=== PATIENT | male | born 1980 | race Caucasian/White ===

== ENCOUNTER 2016-11-21 10:09 | Emergency (ER) | payer OTHER ==
[~2016-11-21] VITALS: Ht 170.2 cm; Wt 78.0 kg
[~2016-11-21 10:09] MED LIST: ALPR-411 PO; CAFF200T13 PO; HYDR-4079 PO; LSN20 PO; PROP10TA7 PO
[2016-11-21 10:17] VITALS: TEMP 37.1; Ht 170.2 cm; Wt 78.0 kg
[2016-11-21] MEDS ORDERED: KETOROLAC TROMETHAMINE 60 MG/2 ML VIAL IM STA (11:04)
[2016-11-21] MEDS ORDERED: DEXAMETHASONE SOD INJ 10 MG/ML VIAL IM ONE (11:15)
--- NOTE | 2016-11-21 11:47 | DIAGNOSTIC IMAGING REPORT ---
L-SPINE MIN 4 VIEWS ROUTINE CLINICAL HISTORY: Chronic low back pain, right thigh pain. COMPARISON: None FINDINGS: There is mild leftward curvature of the lumbar spine. No acute fracture is identified. There is mild disc space narrowing with osteophytosis at multiple levels within the lumbar spine. Endplate irregularity at these levels is degenerative. Sacroiliac joints are intact. IMPRESSION: 1. No acute lumbar spine fracture or subluxation. 2. Mild multilevel disc space narrowing with moderate endplate osteophytosis within the lumbar spine. Electronically signed by: Tim Chahal M.D. 11/21/2016 11:45 AM Dictated Date/Time: 11/21/2016 11:44 AM
--- NOTE | 2016-11-21 11:47 | DIAGNOSTIC IMAGING REPORT ---
RIGHT HIP UNILATERAL 2 VIEWS CLINICAL HISTORY: Right hip pain. COMPARISON: None FINDINGS: Alignment of the right hip is anatomic. There is no fracture or suspicious lesion. There is no evidence for avascular necrosis. Right hip joint space is preserved. There is minimal osteophytosis of the right hip. IMPRESSION: 1. No acute fracture or dislocation of the right hip. 2. Preserved right hip joint space with minimal osteophytosis. Electronically signed by: Tim Chahal M.D. 11/21/2016 11:46 AM Dictated Date/Time: 11/21/2016 11:46 AM
--- NOTE | 2016-11-21 12:04 | DIAGNOSTIC IMAGING REPORT ---
RIGHT LOWER EXTREMITY VENOUS DOPPLER CLINICAL HISTORY: Right thigh pain and burning. COMPARISON STUDY: No previous studies for comparison. TECHNIQUE: Sonography of the deep venous system of the right lower extremity was performed. Compression and augmentation were evaluated. FINDINGS: The right common femoral, superficial femoral and popliteal veins were compressible. Augmentation was normal. Flow was shown within the deep calf vessels. IMPRESSION: No evidence of deep venous thrombus within the right lower extremity. Electronically signed by: Tim Chahal M.D. 11/21/2016 12:03 PM Dictated Date/Time: 11/21/2016 12:03 PM
[2016-11-21] MEDS ORDERED: CYCL10TA6 PO (12:44)
[2016-11-21] MEDS ORDERED: HYDR-5688 PO (12:44)
[2016-11-21] MEDS ORDERED: PRED20TA PO (12:44)
[2016-11-21 12:46] VITALS: BP 100/59; PULSE 74; O2SAT 100
--- NOTE | 2016-11-21 12:46 | EMERGENCY ROOM VISIT NOTE ---
ED Visit Note First contact with patient: 10:33 CHIEF COMPLAINT: Right leg pain and low back pain 2 weeks HISTORY OF PRESENT ILLNESS: Patient is a 36-year-old white male with past medical history significant for chronic low back pain secondary to lumbar degenerative disc disease who presents emergency department for evaluation of throbbing pain in the right thigh 2 weeks. He has a history of chronic low back pain and states that this is stable. He previously had been under the care of pain management in [place]. He reports that they just wrote him prescriptions for medication. He was last on Uvalde 10 mg tablets. He cannot recall when his last MRI was. He states that there was no talk of any type of injections or physical therapy referral. He stopped going to pain management and May did he states that over the last 2 weeks he noticed a throbbing pain in the lateral aspect of the right thigh. It radiates from the lateral hip down toward his knee. In the last 2-3 days however the pain has worsened. He describes it as a "burning" pain. He states that is now wrapping toward the medial aspect of his thigh. He has difficulty getting comfortable due to his pain. He rates his discomfort a 10/10. There has been no injury to the leg or back. No unusual activity which may cause an injury recently. There has not been a long period of immobilization or long car or plane ride recently. There is no history of blood clots in the veins of the legs. He denies any fever or chills. No urinary symptoms. No bowel or bladder incontinence. No saddle anesthesias. He states that he took hydrocodone and oxycodone that he got from friends that he gave him minimal relief for his pain. REVIEW OF SYSTEMS: Review of systems as per HPI. All other systems reviewed were negative. 10 systems reviewed. PMH: Electronic medical records are reviewed and summarized as above/below. See Problem List. SOCIAL HISTORY: Patient lives at home. He is employed. Uses chewing tobacco. PHYSICAL EXAM: Vital Signs: Reviewed Nurse's notes. CONSTITUTIONAL: Patient is a well-appearing 36-year-old white male who is awake and alert and in mild distress due to his pain. HEART: Regular rate and rhythm without murmurs, ectopy, gallops, or rubs. LUNGS: Clear to auscultation and breath sounds equal, no wheezes, rales, or rhonchi. ABDOMEN: Soft, non-tender, no hepatosplenomegaly, or masses. NEUROLOGICAL: Alert oriented, coherent. PERRL, EOMs full, antalgic gait. SPINE: Examination of the patient's back showed no ecchymosis, abrasions, erythema, increased warmth, induration or swelling. He has diffuse tenderness to palpation over the lumbar spine and in the lumbar paraspinous musculature. He has discomfort with flexion, rotation and lateral bending. EXTREMITIES: No cyanosis, edema, joint tenderness or effusion. Pulses equal bilaterally. There is no redness, swelling, ecchymosis or rashes noted in the right thigh region. There soft and nontender bilaterally. No cords can be palpated and Anthony's sign is negative. Negative straight leg raise testing bilaterally. Hip range of motion is full. Negative logroll. Lower extremity DTRs are equal and symmetrical bilaterally. Normal strength to great toe and ankle dorsiflexion/plantarflexion, knee flexion and extension and hip flexion. There is no lymphangitic streaking. EMERGENCY DEPARTMENT COURSE: Patient was medicated with Toradol 10 mg IM and Decadron 10 mg IM lumbar spine and right hip x-rays were obtained. Degenerative changes were noted in the lumbar spine x-ray, otherwise remainder of the radiographs were normal. Right lower extremity ultrasound was negative for DVT. Patient pain appears to be radicular in nature, possibly related to his known lumbar degenerative disc disease. I do not suspect acute compression syndrome, cauda equina, diskitis, epidural abscess, hematoma or neurovascular compromise. He will be placed on a short course of oral prednisone. He was given a small prescription for hydrocodone. Patient was reviewed in the [facility] Prescription Drug Monitoring Program, and there were no red flags noted. He was receiving regular narcotic prescriptions , but has not received any recently, which does seem consistent with him stating that he is no longer attending pain management. RIGHT HIP UNILATERAL 2 VIEWS CLINICAL HISTORY: Right hip pain. COMPARISON: None FINDINGS: Alignment of the right hip is anatomic. There is no fracture or suspicious lesion. There is no evidence for avascular necrosis. Right hip joint space is preserved. There is minimal osteophytosis of the right hip. IMPRESSION: 1. No acute fracture or dislocation of the right hip. 2. Preserved right hip joint space with minimal osteophytosis. [~ rep ct add3]] L-SPINE MIN 4 VIEWS ROUTINE CLINICAL HISTORY: Chronic low back pain, right thigh pain. COMPARISON: None FINDINGS: There is mild leftward curvature of the lumbar spine. No acute fracture is identified. There is mild disc space narrowing with osteophytosis at multiple levels within the lumbar spine. Endplate irregularity at these levels is degenerative. Sacroiliac joints are intact. IMPRESSION: 1. No acute lumbar spine fracture or subluxation. 2. Mild multilevel disc space narrowing with moderate endplate osteophytosis within the lumbar spine. RIGHT LOWER EXTREMITY VENOUS DOPPLER CLINICAL HISTORY: Right thigh pain and burning. COMPARISON STUDY: No previous studies for comparison. TECHNIQUE: Sonography of the deep venous system of the right lower extremity was performed. Compression and augmentation were evaluated. FINDINGS: The right common femoral, superficial femoral and popliteal veins were compressible. Augmentation was normal. Flow was shown within the deep calf vessels. IMPRESSION: No evidence of deep venous thrombus within the right lower extremity. Problem List Medical Problems: (1) Anxiety Disorder, Unspecified Status: Chronic (2) Hypertension Status: Chronic (3) Left sided chest pain Status: Resolved (4) Left sided chest pain Status: Resolved (5) Lumbago Status: Chronic (6) Lumbar degenerative disc disease Status: Chronic (7) Migraine Status: Chronic (8) Non-cardiac chest pain Status: Resolved Surgical Problems: (1) Kidney stone Status: Resolved Current/Historical Medications Scheduled Alprazolam (Xanax), 0.5 MG PO QID Lisinopril (Lisinopril), 20 MG PO DAILY Prednisone (Prednisone), 0 PO DAILY Scheduled PRN Cyclobenzaprine Hcl (Flexeril), 10 MG PO TID PRN for Muscle Spasms Hydrocodone/Acetaminophen 5MG/325MG (Uvalde 5MG/325MG), 1-2 TABLETS PO Q4 PRN for Pain Allergies Coded Allergies: POLLEN (Verified Allergy, Intermediate, SNEEZING, RUNNY NOSE, ITCHY EYES. , 11/21/16) Vital Signs Date Time Temp Pulse Resp B/P Pulse Ox O2 Delivery O2 Flow Rate FiO2 11/21/16 12:46 74 16 100/59 100 Room Air 11/21/16 10:17 37.1 85 16 125/76 100 Room Air Medications Administered Medications (Trade) Dose Ordered Sig/Margaret Route Start Time Stop Time Status Last Admin Dose Admin Ketorolac Tromethamine (Toradol Inj) 60 mg NOW STAT IM 11/21/16 11:04 11/21/16 11:07 DC 11/21/16 11:14 60 MG Dexamethasone Sodium Phosphate (Decadron Inj) 10 mg NOW ONCE IM 11/21/16 11:15 11/21/16 11:16 DC 11/21/16 11:13 10 MG Departure Information Impression Primary Impression: Leg pain, right Prescriptions Hydrocodone/Acetaminophen 5MG/325MG (Uvalde 5MG/325MG) Tab 1-2 TABLETS PO Q4 Y for Pain, #15 TAB For Initial Treatment Prov: Rin Dejesus PA 11/21/16 Cyclobenzaprine Hcl (FLEXERIL) 10 Mg Tab 10 MG PO TID Y for Muscle Spasms, #15 TAB Prov: Rin Dejesus PA 11/21/16 Prednisone (Prednisone) 20 Mg Tab 0 PO DAILY, #18 TAB 3 DAILY FOR 3 DAYS, THEN 2 DAILY FOR 3 DAYS, THEN 1 DAILY FOR 3 DAYS. Prov: Rin Dejesus PA 11/21/16 Referrals No Doctor, Assigned (PCP) Patient Instructions My [facility] Additional Instructions Hydrocodone/Acetaminophen (Uvalde) 5/325 mg: Take 1-2 pills every four hours for breakthrough pain. Avoid alcohol, operating machinery or dangerous equipment, working on ladders or roofs, DRIVING, or situations where being under the influence may be dangerous. It is recommended to use an xbqo-pka-oqumrsa stool softener such as Colace, 100mg twice daily while taking this medication to avoid constipation. Prednisone 20mg: Once daily until the prescription is finished. It is best to take this earlier in the day as some patients note occasional difficulty falling asleep when taken in the late evening. Cyclobenzaprine (Flexeril) 10 mg: Take 1 pills 3 times daily as needed for muscle spasms.. Avoid alcohol, operating machinery or dangerous equipment, working on ladders or roofs, DRIVING, or situations where being under the influence may be dangerous. Ibuprofen(Motrin, Advil) may be used for fever or pain. Use 600mg every six hours as needed. Take with food. Avoid using more than 2400mg in a 24 hour period. Do not use 2400mg per day for more than three consecutive days without physician direction. Prolonged inappropriate use can lead to stomach upset or ulcers. This medication can be taken if you need to drive, work, or perform activities which may be dangerous when taking narcotic pain medication. (AND/OR) Acetaminophen(Tylenol) may be used for fever or pain. Use 1000mg every six hours as needed. Avoid using more than 3000mg in a 24 hour period. This medication can be taken if you need to drive, work, or perform activities which may be dangerous when taking narcotic pain medication. Rest and avoid heavy lifting until your symptoms resolve and then gradually return to full activity. A good rule of thumb is if it hurts your back to perform a certain activity, then it should be avoided until you are healthy again. A heating pad, warm compresses, or a hot shower may help with tight muscles and can be done several times a day as needed. Continue current medications. Return to the ER immediately for any numbness, tingling, severe pain, loss of control of your bowels or bladder, inability to walk, or as needed. Follow up with your primary care physician within 3-5 days for a recheck of your current condition.
== END 2016-11-21 13:07 | disposition home or self-care (01) ==
LOC: C.EDB 10:10
DX: M79.651 Pain in right thigh (principal); M51.36 Other intervertebral disc degeneration, lumbar region; F17.220 Nicotine dependence, chewing tobacco, uncomplicated; F41.9 Anxiety disorder, unspecified; I10 Essential (primary) hypertension; Z87.442 Personal history of urinary calculi; Z79.899 Other long term (current) drug therapy

== ENCOUNTER 2017-04-11 02:02 | Emergency (ER) | payer OTHER ==
[~2017-04-11] VITALS: Ht 177.8 cm; Wt 82.4 kg
[~2017-04-11 02:02] MED LIST changes: -CAFF200T13 PO; -HYDR-4079 PO; +HYDR-5688 PO; +PRED20TA PO; -PROP10TA7 PO
[2017-04-11 02:05] VITALS: TEMP 37.1; Ht 177.8 cm; Wt 82.4 kg
[2017-04-11] MEDS ORDERED: SODIUM CHLORIDE 0.9% 1000ML 1,000 ML IV STA (02:08)
[2017-04-11] MEDS ORDERED: KETOROLAC TROMETHAMINE 30 MG/ML VIAL IV STA (02:08)
[2017-04-11] MEDS ORDERED: OPTIRAY 320 IV PRN (02:15)
[2017-04-11 02:34] LABS: BASO % 0.2 %; BASO ABS # 0.02 K/uL (0-0.2); COMPLETE YES; EOS % 1.4 %; HEMATOCRIT 37.9 % (42-52); IG% 0.2 %; LYMPH % 31.2 %; LYMPH ABS # 3.11 K/uL (1.2-3.4); MEAN CORPUSCULAR HEMOGLOBIN 29.1 pg (25-34); MEAN CORPUSCULAR HGB CONC 34.3 g/dl (32-36); MEAN PLATELET VOLUME 9.5 fL (7.4-10.4); PLATELET COUNT 259 K/uL (130-400); RED BLOOD COUNT 4.46 M/uL (4.7-6.1); WHITE BLOOD COUNT 9.98 K/uL (4.8-10.8)
[2017-04-11] MEDS ORDERED: METO25TA3 PO (02:35)
[2017-04-11 02:55] LABS: BUN/CREATININE RATIO 11.4 (10-20); CALCIUM 8.9 mg/dl (8.5-10.1); POTASSIUM 3.8 mmol/L (3.5-5.1)
[2017-04-11] MEDS ORDERED: OXYCODONE IR HOME PACK PO ONE (05:00)
[2017-04-11] MEDS ORDERED: AMOXICIL/CLAVU 875MG HOME PACK PO ONE (05:00)
--- NOTE | 2017-04-11 05:00 | EMERGENCY ROOM VISIT NOTE ---
History First contact with patient: 02:07 Chief Complaint: OTHER COMPLAINT Stated Complaint: JAW PAIN History of Present Illness The patient is a 37 year old male who presents to the Emergency Room with complaints of severe left lower jaw pain for the past 3 days that is steadily getting worse. Pain currently 8 out of 10 worse with chewing better with rest. It does not radiate. Patient denies neck pain, neck stiffness, chest pain, dyspnea, cough, congestion, fever, chills, sore throat, dysphagia. Patient has not seen a dentist in a while. Review of Systems See HPI for pertinent positives & negatives. A total of 10 systems reviewed and were otherwise negative. Past Medical/Surgical History Medical Problems: (1) Anxiety Disorder, Unspecified (2) Hypertension (3) Left sided chest pain (4) Left sided chest pain (5) Lumbago (6) Lumbar degenerative disc disease (7) Migraine (8) Non-cardiac chest pain Surgical Problems: (1) Kidney stone Family History FH: cancer FH: gallbladder disease FH: heart disease FH: hypertension FH: lung disease FHx: diabetes mellitus Kidney stones Social History Smoking Status: Never Smoker Alcohol Use: none Drug Use: cocaine, marijuana Housing Status: lives alone Current/Historical Medications Scheduled Metoprolol Succ (Toprol Xl) (Toprol-Xl), 25 MG PO DAILY Physical Exam Vital Signs Date Time Temp Pulse Resp B/P (MAP) Pulse Ox O2 Delivery O2 Flow Rate FiO2 04/11/17 04:12 89 18 162/108 100 Room Air 04/11/17 02:05 37.1 91 18 154/106 100 Room Air Physical Exam VITALS: Vitals are noted on the nurse's note and reviewed by myself. Vital signs stable. GENERAL: White male, in no acute distress, nondiaphoretic, well-developed well- nourished. SKIN: The skin was without rashes, erythema, edema, or bruising. There is no tenting of the skin. Capillary reflex less than 2 seconds. HEAD: Normocephalic atraumatic. EARS: External auditory canals clear, tympanic membranes pearly lange without erythema or effusion bilaterally. EYES: Pupils equal round and reactive to light and accommodation. Conjunctivae without injection, sclerae without icterus. Extraocular movements intact. NOSE: Patent, turbinates without inflammation or discharge. No sinus tenderness. MOUTH: Mucous membranes moist. no Dionicio's angina Pharynx without erythema or exudate. Uvula midline. Airway patent. Tongue does not deviate. NECK: Supple without nuchal rigidity. No lymphadenopathy. No thyromegaly. Cervical spine is nontender. No JVD. Face: Tender to palpation over left lower jawline Dental exam: Extensive plaque buildup with no palpable abscess. HEART: Regular rate and rhythm without murmurs gallops or rubs. LUNGS: Clear to auscultation bilaterally without wheezes, rales or rhonchi. No dullness to percussion. No retractions or accessory muscle use. ABDOMEN: Positive bowel sounds x 4. Normal tympanic percussion. Soft, nontender, without masses or organomegaly. Deleon sign negative. No guarding or rebound tenderness. MUSCULOSKELETAL: No muscle atrophy, erythema, or edema noted. NEURO: Patient was alert and oriented to person place and time. Normal sensation to light and sharp touch. No focal neurological deficits. Medical Decision & Procedures Laboratory Results 04/11/17 02:20 Red Blood Count 4.46, Mean Corpuscular Volume 85.0, Mean Corpuscular Hemoglobin 29.1, Mean Corpuscular Hemoglobin Concent 34.3, Mean Platelet Volume 9.5, Neutrophils (%) (Auto) 59.0, Lymphocytes (%) (Auto) 31.2, Monocytes (%) (Auto) 8.0, Eosinophils (%) (Auto) 1.4, Basophils (%) (Auto) 0.2, Neutrophils # (Auto) 5.89, Lymphocytes # (Auto) 3.11, Monocytes # (Auto) 0.80, Eosinophils # (Auto) 0.14, Basophils # (Auto) 0.02 04/11/17 02:20 Test 04/11/17 02:20 White Blood Count 9.98 K/uL (4.8-10.8) Red Blood Count 4.46 M/uL (4.7-6.1) Hemoglobin 13.0 g/dL (14.0-18.0) Hematocrit 37.9 % (42-52) Mean Corpuscular Volume 85.0 fL (80-100) Mean Corpuscular Hemoglobin 29.1 pg (25-34) Mean Corpuscular Hemoglobin Concent 34.3 g/dl (32-36) Platelet Count 259 K/uL (130-400) Mean Platelet Volume 9.5 fL (7.4-10.4) Neutrophils (%) (Auto) 59.0 % Lymphocytes (%) (Auto) 31.2 % Monocytes (%) (Auto) 8.0 % Eosinophils (%) (Auto) 1.4 % Basophils (%) (Auto) 0.2 % Neutrophils # (Auto) 5.89 K/uL (1.4-6.5) Lymphocytes # (Auto) 3.11 K/uL (1.2-3.4) Monocytes # (Auto) 0.80 K/uL (0.11-0.59) Eosinophils # (Auto) 0.14 K/uL (0-0.5) Basophils # (Auto) 0.02 K/uL (0-0.2) RDW Standard Deviation 38.8 fL (36.4-46.3) RDW Coefficient of Variation 12.5 % (11.5-14.5) Immature Granulocyte % (Auto) 0.2 % Immature Granulocyte # (Auto) 0.02 K/uL (0.00-0.02) Anion Gap 7.0 mmol/L (3-11) Est Creatinine Clear Calc Drug Dose 102.4 ml/min Estimated GFR () 109.4 Estimated GFR (Non- 94.4 BUN/Creatinine Ratio 11.4 (10-20) Calcium Level 8.9 mg/dl (8.5-10.1) Amylase Level 44 U/L (25-115) Medications Administered Medications (Trade) Dose Ordered Sig/Margaret Route Start Time Stop Time Status Last Admin Dose Admin Ketorolac Tromethamine (Toradol Inj) 30 mg NOW STAT IV 04/11/17 02:08 04/11/17 02:10 DC 04/11/17 02:23 30 MG Sodium Chloride 1,000 ml @ 999 mls/hr Q1H1M STAT IV 04/11/17 02:08 04/11/17 03:08 DC 04/11/17 02:23 999 MLS/HR ED Course Prior records reviewed and summarized as above. Triage Nursing notes reviewed. Additional history obtained from EMS The patient's history was concerning for facial pain Differential diagnosis: Etiologies such as cellulitis, abscess, tic douloureux, salivary stone, parotitis, dental infection, as well as others were entertained.. Physical examination: As above ER treatment provided: Toradol On reassessment the patient felt better. Diagnostics interpreted by me: The labs revealed no worrisome leukocytosis or electrolyte abnormality. Normal amylase Imaging studies: CT NECK: No fluid collections. No abnormal mass lesions. The airway is patent. No adenopathy. Degenerative changes of cervical spine including posterior disc/ossify complexes at C5-C6 and C6- C7. Minimal mucosal thickening left frontal sinus recess. Radiologist: Kulwinder Reeves MD This appears to be facial pain most like a from dental problem. Patient does have extensive plaque buildup and this could be a problem with his rooots and patient may require a root canal. He was strongly encouraged to see a dentist. Patient is neurovascularly and neurologically intact. No signs of meningitis or mastoiditis or Dionicio angina. He was well-appearing. Patient was started on antibiotics for possible dental infection. He was advised to return to the ER immediately for fevers, facial swelling, dysphagia, worsening signs or symptoms or as needed. By the evaluation outlined above emergent etiologies such as abscess, Dionicio angina as well as others were deemed relatively unlikely. The pt informed about the findings as listed above. All questions were answered and pleased with the treatment. Return instructions were outlined and the patient was discharged in stable condition. Outpatient prescription management: Augmentin Referral: The patient was referred back to dentist and primary care physician for follow- up in 2 to 3 days for a recheck of the current condition. Case reviewed with my attending. Medical Decision As above [place] Drug Monitoring Program Search Results: patient reviewed within database, no issues identified Medication Reconcilliation Current Medication List: was personally reviewed by me Blood Pressure Screening Patient's blood pressure: Elevated blood pressure Blood pressure disposition: Referred to PCP Impression Primary Impression: Dental caries Additional Impressions: Pain, dental Facial pain Departure Information Dispostion Home / Self-Care Condition GOOD Referrals No Doctor, Assigned (PCP) Patient Instructions My [facility] Additional Instructions Your blood pressure was high today. See family care for this. Augmentin 875 mg: Take one pill 2 times daily for 10 days for your infection. All antibiotics can cause diarrhea. If this occurs and you feel worse or it does not resolve in 1-2 days follow up with your doctor or return to the Emergency Department as this could be signs of serious underlying problems. Any medication can cause an allergic reaction, stop the pills immediately and return to the ER for rash, hives, breathing difficulties, or swelling. Oxycodone (OxyIR) 5mg: Take 1-2 pills every four hours for breakthrough pain. Avoid alcohol, operating machinery or dangerous equipment, working on ladders or roofs, DRIVING, or situations where being under the influence may be dangerous. It is recommended to use an gwbr-zdg-jylnnoq stool softener such as Colace, 100mg twice daily while taking this medication to avoid constipation. Ibuprofen(Motrin, Advil) may be used for fever or pain. Use 600mg every six hours as needed. Take with food. Avoid using more than 2400mg in a 24 hour period. Do not use 2400mg per day for more than three consecutive days without physician direction. Prolonged inappropriate use can lead to stomach upset or ulcers. This medication can be taken if you need to drive, work, or perform activities which may be dangerous when taking narcotic pain medication. (AND/OR) Acetaminophen(Tylenol) may be used for fever or pain. Use 1000mg every six hours as needed. Avoid using more than 3000mg in a 24 hour period. This medication can be taken if you need to drive, work, or perform activities which may be dangerous when taking narcotic pain medication. [place] teeth twice a day, floss daily and do warm saltwater gargles 3 times a day. See a dentist as soon as possible for definitive care for your dental problem. Return to ER sooner for facial swelling, fever, redness, worsening signs or symptoms or as needed. Problem Qualifiers
[2017-04-11] MEDS ORDERED: AMOX875T PO (05:02)
[2017-04-11 05:18] VITALS: BP 161/108; PULSE 85; O2SAT 100
--- NOTE | 2017-04-11 07:27 | DIAGNOSTIC IMAGING REPORT ---
CT SCAN OF THE NECK WITH IV CONTRAST CLINICAL HISTORY: Left-sided facial pain. COMPARISON STUDY: No priors. TECHNIQUE: Following the IV administration of 115 cc of Optiray 320, CT scan of the soft tissues of the neck was performed from the skull base to the upper chest. Images are reviewed in the axial, sagittal, and coronal planes. IV contrast was administered without complication. A dose lowering technique was utilized adhering to the principles of ALARA. CT DOSE: 540.39 mGy.cm FINDINGS: Pharynx: The nasopharynx, oropharynx, and laryngeal pharynx are normal in appearance. The pharyngeal airway is widely patent. There is no evidence of mass lesion. The vocal cords are symmetric. The parapharyngeal fat is well maintained. The prevertebral/retropharyngeal soft tissues are within normal limits. Soft tissues: No mass or fluid collection is seen. No significant periodontal disease is identified. Lymphadenopathy: No cervical lymphadenopathy is seen Thyroid: Normal in size and attenuation. Salivary glands: The parotid and submandibular glands are within normal limits. Brain parenchyma: The visualized brain parenchyma at the skull base is normal in appearance. Vascular structures: The carotid arteries and jugular veins are widely patent. Skeletal structures: Imaged portions of the calvarium at the skull base are within normal limits. The cervical spine appears intact. Orbits: The bony orbits are intact. Orbital contents are normal in appearance. Sinuses and mastoids: There is trace mucosal thickening within the left frontal sinus. The paranasal sinuses are otherwise clear. The mastoid air cells are well pneumatized. Lung apices: Visualized upper lobe lung parenchyma appears clear. IMPRESSION: No acute abnormality is identified. No adenopathy or fluid collection is seen. Electronically signed by: Jose Armando Lugo M.D. 04/11/2017 7:25 AM Dictated Date/Time: 04/11/2017 7:21 AM
== END 2017-04-11 05:18 | disposition home or self-care (01) ==
LOC: EDBD 02:02 → C.EDB 02:04
DX: K02.9 Dental caries, unspecified (principal); K08.89 Other specified disorders of teeth and supporting structures; R68.84 Jaw pain; I10 Essential (primary) hypertension; F41.9 Anxiety disorder, unspecified; Z79.899 Other long term (current) drug therapy; Z87.898 Personal history of other specified conditions; Z82.49 Family history of ischemic heart disease and other diseases of the circulatory system; Z83.3 Family history of diabetes mellitus; Z83.6 Family history of other diseases of the respiratory system; Z83.79 Family history of other diseases of the digestive system; Z84.1 Family history of disorders of kidney and ureter

== ENCOUNTER 2017-08-30 12:07 | Emergency (ER) | payer OTHER ==
[~2017-08-30] VITALS: Ht 177.8 cm; Wt 75.0 kg
[~2017-08-30 12:07] MED LIST changes: -ALPR-411 PO; -HYDR-5688 PO; -LSN20 PO; +METO25TA3 PO; -PRED20TA PO
[2017-08-30 12:16] VITALS: TEMP 36.4; Ht 177.8 cm; Wt 75.0 kg
[2017-08-30] MEDS ORDERED: KETOROLAC TROMETHAMINE 30 MG/ML VIAL IV STA (12:53)
--- NOTE | 2017-08-30 13:06 | EMERGENCY ROOM VISIT NOTE ---
History Report prepared by Giovanni: Richard Perry Under the Supervision of: Dr. Sher Harrell M.D. First contact with patient: 12:45 Chief Complaint: GROIN PAIN Stated Complaint: ABD PAIN History of Present Illness The patient is a 37 year old male who presents to the Emergency Room with complaints of constant left testicle that began this morning. He rates his pain as an 8/10 in severity. The patient states this his pain is worsened with movement. He states that he was moving a couch and boxes yesterday and the recliner today. The patient states that he also frequently lifts heavy objects at work. He reports that when he went to work today he started experience left testicle pain. The patient states that he noticed he has also been experiencing a burning sensation during urination. He denies a history of a hernia, back pain , numbness or weakness in his legs, new headaches. The patient admits to a history of hypertension and anxiety. Source of History: patient Onset: this morning Position: other (left testicle) Symptom Intensity: 8/10 Timing: constant Modifying Factors (Worsening): movement Associated Symptoms: + urinary symptoms, No headache, No back pain, No weakness, No numbness Review of Systems See HPI for pertinent positives & negatives. A total of 10 systems reviewed and were otherwise negative. Past Medical & Surgical Medical Problems: (1) Anxiety Disorder, Unspecified (2) Hypertension (3) Left sided chest pain (4) Left sided chest pain (5) Lumbago (6) Lumbar degenerative disc disease (7) Migraine (8) Non-cardiac chest pain Surgical Problems: (1) Kidney stone Old medical records were reviewed. Nurse's notes were reviewed and I agree with. Family History FH: cancer FH: gallbladder disease FH: heart disease FH: hypertension FH: lung disease FHx: diabetes mellitus Kidney stones Social History Smoking Status: Never Smoker Alcohol Use: none Drug Use: cocaine, marijuana Housing Status: lives alone Current/Historical Medications Scheduled Metoprolol Succ (Toprol Xl) (Toprol-Xl), 50 MG PO DAILY Sumatriptan Succinate (Imitrex), 50 MG PO PRN Scheduled PRN Oxycodone Immediate Rel Tab (Roxicodone Ir), 1-2 TAB PO Q4H PRN for Severe Pain Allergies Coded Allergies: POLLEN (Verified Allergy, Intermediate, SNEEZING, RUNNY NOSE, ITCHY EYES. , 08/30/17) Propofol (Unverified Allergy, Unknown, ., 08/30/17) Physical Exam Vital Signs Date Time Temp Pulse Resp B/P (MAP) Pulse Ox O2 Delivery O2 Flow Rate FiO2 08/30/17 16:04 93 18 142/93 96 Room Air 08/30/17 14:17 82 18 123/85 100 Room Air 08/30/17 13:28 85 18 139/86 100 Room Air 08/30/17 12:38 100 08/30/17 12:16 36.4 103 18 149/95 93 Room Air Physical Exam General: Non-ill appearing middle aged male in no acute distress. HEENT: Normal cephalic atraumatic. Pupils are equal round and reactive to light. Extraocular movements are intact. Oropharynx is pink with moist mucous membranes. No swelling of the mouth lips or tongue. Neck: Supple with a midline trachea. No meningeal signs or stiffness, no JVD or bruits. No Stridor. Chest: Clear to auscultation bilaterally. No wheezes or rhonchi. No increased work of breathing. Heart: regular rate and rhythm. Abdomen: Soft, tenderness in left lower quadrant radiating into groin, no hernia felt, no warmth or swelling, nondistended without rebound guarding or rigidity. Extremities: No cyanosis clubbing or edema. No calf tenderness or assymetry Spine/Back. Non tender to palpation. No CVA tenderness Skin: Good turgor without rashes. Neurologic exam: Cranial nerves two through 12 are intact. Motor and sensation are intact and symmetrical throughout. Medical Decision & Procedures ER Provider Diagnostic Interpretation: Radiology results as stated below per my review and radiologist interpretation: SCROTAL ULTRASOUND CLINICAL HISTORY: Left-sided scrotal pain. COMPARISON STUDY: None. TECHNIQUE: Grayscale and color and duplex Doppler sonography of the scrotum was performed. FINDINGS: The right testis measures 3.8 x 2 x 2.7 cm and the left measures 3.4 x 1.9 x 2.4 cm. Color flow within each testis is symmetric. There is no evidence of epididymitis. There is no testicular mass. There is a 2 mm left epididymal head cyst. There is a small left varicocele. A few right-sided scrotaliths are noted. IMPRESSION: 1. Normal sonographic appearance of the testes. 2. No evidence of epididymitis. 3. Small left varicocele. 4. No left inguinal hernia identified. Electronically signed by: Tim Chahal M.D. 08/30/2017 2:12 PM Dictated Date/Time: 08/30/2017 2:[address] OF THE ABDOMEN AND PELVIS WITHOUT CONTRAST CLINICAL HISTORY: Left lower quadrant pain. Hernia. COMPARISON STUDY: No previous studies for comparison. TECHNIQUE: Axial images of the abdomen and pelvis were obtained without IV contrast. Images were reviewed in the axial, sagittal, and coronal planes. A dose lowering technique was utilized adhering to the principles of ALARA. FINDINGS: A 3 mm calculus within the upper pole of the left kidney is noted. There is a suspected adjacent punctate left renal calculus. There are no ureteral calculi and there is no hydronephrosis. Evaluation of the remainder of the abdomen and pelvis is suboptimal on this unenhanced examination. The liver, spleen, adrenal glands and pancreas are unremarkable. There is no biliary or pancreatic ductal dilatation. The caliber of small large bowel are normal. The appendix is normal. There is no evidence for a bowel obstruction. There is sigmoid diverticulosis without evidence for acute diverticulitis. A prominent left inguinal lymph node measures 9 mm in short axis diameter. No enlarged lymph nodes are present. There is no lymphadenopathy or ascites. No inguinal hernia is identified by CT. There is a tiny fat-containing umbilical hernia. IMPRESSION: 1. Several small left renal calculi. No ureteral calculi or hydronephrosis. 2. No acute process within the abdomen or pelvis on unenhanced exam. 3. No left inguinal hernia. Tiny fat-containing umbilical hernia. 4. Prominent left inguinal lymph node. No pathologically enlarged lymph nodes. Electronically signed by: Tim Chahal M.D. 08/30/2017 3:57 PM Dictated Date/Time: 08/30/2017 3:48 PM Laboratory Results 08/30/17 12:20 Red Blood Count 5.04, Mean Corpuscular Volume 86.3, Mean Corpuscular Hemoglobin 29.0, Mean Corpuscular Hemoglobin Concent 33.6, Mean Platelet Volume 10.1, Neutrophils (%) (Auto) 63.5, Lymphocytes (%) (Auto) 27.0, Monocytes (%) (Auto) 7.1, Eosinophils (%) (Auto) 2.1, Basophils (%) (Auto) 0.1, Neutrophils # (Auto) 6.31, Lymphocytes # (Auto) 2.69, Monocytes # (Auto) 0.71, Eosinophils # (Auto) 0.21, Basophils # (Auto) 0.01 08/30/17 12:20 Test 08/30/17 12:20 08/30/17 13:35 White Blood Count 9.95 K/uL (4.8-10.8) Red Blood Count 5.04 M/uL (4.7-6.1) Hemoglobin 14.6 g/dL (14.0-18.0) Hematocrit 43.5 % (42-52) Mean Corpuscular Volume 86.3 fL (80-100) Mean Corpuscular Hemoglobin 29.0 pg (25-34) Mean Corpuscular Hemoglobin Concent 33.6 g/dl (32-36) Platelet Count 315 K/uL (130-400) Mean Platelet Volume 10.1 fL (7.4-10.4) Neutrophils (%) (Auto) 63.5 % Lymphocytes (%) (Auto) 27.0 % Monocytes (%) (Auto) 7.1 % Eosinophils (%) (Auto) 2.1 % Basophils (%) (Auto) 0.1 % Neutrophils # (Auto) 6.31 K/uL (1.4-6.5) Lymphocytes # (Auto) 2.69 K/uL (1.2-3.4) Monocytes # (Auto) 0.71 K/uL (0.11-0.59) Eosinophils # (Auto) 0.21 K/uL (0-0.5) Basophils # (Auto) 0.01 K/uL (0-0.2) RDW Standard Deviation 41.4 fL (36.4-46.3) RDW Coefficient of Variation 13.1 % (11.5-14.5) Immature Granulocyte % (Auto) 0.2 % Immature Granulocyte # (Auto) 0.02 K/uL (0.00-0.02) Anion Gap 5.0 mmol/L (3-11) Est Creatinine Clear Calc Drug Dose 77.0 ml/min Estimated GFR () 77.5 Estimated GFR (Non- 66.9 BUN/Creatinine Ratio 10.9 (10-20) Calcium Level 9.3 mg/dl (8.5-10.1) Urine Color YELLOW Urine Appearance CLEAR (CLEAR) Urine pH 5.5 (4.5-7.5) Urine Specific [place] 1.026 (1.000-1.030) Urine Protein NEG (NEG) Urine Glucose (UA) NEG (NEG) Urine Ketones NEG (NEG) Urine Occult Blood NEG (NEG) Urine Nitrite NEG (NEG) Urine Bilirubin NEG (NEG) Urine Urobilinogen NEG (NEG) Urine Leukocyte Esterase NEG (NEG) Laboratory studies as stated above per my review. Medications Administered Medications (Trade) Dose Ordered Sig/Margaret Route Start Time Stop Time Status Last Admin Dose Admin Ketorolac Tromethamine (Toradol Inj) 30 mg NOW STAT IV 08/30/17 12:53 08/30/17 12:55 DC 08/30/17 13:26 30 MG Oxycodone HCl (Roxicodone Immediate Rel 5MG Home Pack) 1 homepack UD ONCE PO 08/30/17 16:00 08/30/17 16:01 DC 08/30/17 15:59 1 HOMEPACK ED Course 1247: Past medical records reviewed. The patient was evaluated in room C03, and a complete history and physical examination were performed. 1253: Ordered Toradol Injection 30 mg IV. 1552: I reevaluated the patient and he has to leave due to the fact that his ride is leaving. His CT is currently pending. I will call him if there is any significant results on his CT. 1600: Ordered Oxycodone HCl 1 homepack PO. Medical Decision Differentials include, but are not limited to; hernia, testicular torsion, musculoskeletal pain, and epididymitis. This patient comes in as described above. He has left groin pain with doing some heavy lifting .on exam there are no masses. It is worse with movement. It does hurt on that side and into the groin. No obvious swelling of his groin. No swelling of the testicles. Positive cremaster reflex. No direct trauma. There has been no fever. IV access was established is given Toradol IV and seemed more comfortable. Urinalysis was unremarkable GC and chlamydia on ER pending. His discharge. No white count or fever. He has no electrolyte or metabolic abnormalities. Ultrasound of the area shows no hernia or abnormality suggest torsion or epididymitis. He had a noncontrast CT and there is no evidence to suggest hernia, he does have a lymph node on that side. He feels Better and asking to go home. He in fact left before the results were back. He will use ibuprofen for pain. More severe pain, he use OxyIR 5 mg, 1- 2 pills every 4-6 hours as needed. He was warned that this could make him drowsy and do not take before drinking, driving, or working. He should follow- up with her doctor this week for recheck. He was happy with the plan and discharged to home. [place] Drug Monitoring Program Search Results: patient reviewed within database, no issues identified Medication Reconcilliation Current Medication List: was personally reviewed by me Blood Pressure Screening Patient's blood pressure: Elevated blood pressure Blood pressure disposition: Elevated BP felt to be situational Impression Primary Impression: Groin pain Scribe Attestation The scribe's documentation has been prepared under my direction and personally reviewed by me in its entirety. I confirm that the note above accurately reflects all work, treatment, procedures, and medical decision making performed by me. Departure Information Dispostion Home / Self-Care Prescriptions Oxycodone Immediate Rel Tab (ROXICODONE IR) 5 Mg Tab 1-2 TAB PO Q4H Y for Severe Pain, #14 TAB Prov: Sher Harrell M.D. 08/30/17 Referrals Aaliyah Aldana (PCP) Forms HOME CARE DOCUMENTATION FORM, IMPORTANT VISIT INFORMATION, WORK / SCHOOL INSTRUCTIONS Patient Instructions My [facility] Additional Instructions Rest. Drink plenty of fluids. Use ibuprofen 400 mg every 6 hours as needed for pain. Take with food. More severe pain, may use OxyIR 5 mg 1-2 pills for 6 hours as needed OxyIR may make you drowsy- do not take before drinking, driving, working. Do not take with alcohol or any other narcotics or sedating medications. Follow-up with your doctor this week for recheck.
[2017-08-30 13:19] LABS: BASO % 0.1 %; BASO ABS # 0.01 K/uL (0-0.2); EOS % 2.1 %; EOS ABS # 0.21 K/uL (0-0.5); HEMATOCRIT 43.5 % (42-52); HEMOGLOBIN 14.6 g/dL (14.0-18.0); IG# 0.02 K/uL (0.00-0.02); LYMPH ABS # 2.69 K/uL (1.2-3.4); MEAN CELL VOLUME 86.3 fL (80-100); MEAN CORPUSCULAR HGB CONC 33.6 g/dl (32-36); MEAN PLATELET VOLUME 10.1 fL (7.4-10.4); MONO % 7.1 %; MONO ABS # 0.71 K/uL (0.11-0.59); NEUT % 63.5 %; NEUT ABS # 6.31 K/uL (1.4-6.5); PLATELET COUNT 315 K/uL (130-400); RED CELL DISTRIBUTION WIDTH CV 13.1 % (11.5-14.5); RED CELL DISTRIBUTION WIDTH SD 41.4 fL (36.4-46.3); WHITE BLOOD COUNT 9.95 K/uL (4.8-10.8)
[2017-08-30 13:27] LABS: CALCIUM 9.3 mg/dl (8.5-10.1); CREATININE 1.33 mg/dl (0.60-1.40)
[2017-08-30] MEDS ORDERED: METO50TA8 PO (13:40)
[2017-08-30] MEDS ORDERED: SUMA50TA15 PO (13:40)
--- NOTE | 2017-08-30 14:13 | DIAGNOSTIC IMAGING REPORT ---
SCROTAL ULTRASOUND CLINICAL HISTORY: Left-sided scrotal pain. COMPARISON STUDY: None. TECHNIQUE: Grayscale and color and duplex Doppler sonography of the scrotum was performed. FINDINGS: The right testis measures 3.8 x 2 x 2.7 cm and the left measures 3.4 x 1.9 x 2.4 cm. Color flow within each testis is symmetric. There is no evidence of epididymitis. There is no testicular mass. There is a 2 mm left epididymal head cyst. There is a small left varicocele. A few right-sided scrotaliths are noted. IMPRESSION: 1. Normal sonographic appearance of the testes. 2. No evidence of epididymitis. 3. Small left varicocele. 4. No left inguinal hernia identified. Electronically signed by: Tim Chahal M.D. 08/30/2017 2:12 PM Dictated Date/Time: 08/30/2017 2:11 PM
[2017-08-30] MEDS ORDERED: OXYC-737 PO (15:53)
--- NOTE | 2017-08-30 15:59 | DIAGNOSTIC IMAGING REPORT ---
CT OF THE ABDOMEN AND PELVIS WITHOUT CONTRAST CLINICAL HISTORY: Left lower quadrant pain. Hernia. COMPARISON STUDY: No previous studies for comparison. TECHNIQUE: Axial images of the abdomen and pelvis were obtained without IV contrast. Images were reviewed in the axial, sagittal, and coronal planes. A dose lowering technique was utilized adhering to the principles of ALARA. FINDINGS: A 3 mm calculus within the upper pole of the left kidney is noted. There is a suspected adjacent punctate left renal calculus. There are no ureteral calculi and there is no hydronephrosis. Evaluation of the remainder of the abdomen and pelvis is suboptimal on this unenhanced examination. The liver, spleen, adrenal glands and pancreas are unremarkable. There is no biliary or pancreatic ductal dilatation. The caliber of small large bowel are normal. The appendix is normal. There is no evidence for a bowel obstruction. There is sigmoid diverticulosis without evidence for acute diverticulitis. A prominent left inguinal lymph node measures 9 mm in short axis diameter. No enlarged lymph nodes are present. There is no lymphadenopathy or ascites. No inguinal hernia is identified by CT. There is a tiny fat-containing umbilical hernia. IMPRESSION: 1. Several small left renal calculi. No ureteral calculi or hydronephrosis. 2. No acute process within the abdomen or pelvis on unenhanced exam. 3. No left inguinal hernia. Tiny fat-containing umbilical hernia. 4. Prominent left inguinal lymph node. No pathologically enlarged lymph nodes. Electronically signed by: Tim Chahal M.D. 08/30/2017 3:57 PM Dictated Date/Time: 08/30/2017 3:48 PM
[2017-08-30] MEDS ORDERED: OXYCODONE IR HOME PACK PO ONE (16:00)
[2017-08-30 16:04] VITALS: BP 142/93; PULSE 93; O2SAT 96
== END 2017-08-30 16:07 | disposition home or self-care (01) ==
LOC: EDBD 12:07 → C.EDC 12:08
DX: N50.812 Left testicular pain (principal); I10 Essential (primary) hypertension; F41.9 Anxiety disorder, unspecified; F12.90 Cannabis use, unspecified, uncomplicated; F14.90 Cocaine use, unspecified, uncomplicated; Z79.899 Other long term (current) drug therapy; Z84.1 Family history of disorders of kidney and ureter; Z80.9 Family history of malignant neoplasm, unspecified; Z82.49 Family history of ischemic heart disease and other diseases of the circulatory system; Z83.3 Family history of diabetes mellitus

== ENCOUNTER → 2017-08-31 | Outpatient (CLI) | payer OTHER ==
[~2017-08-31] MED LIST changes: -METO25TA3 PO; +METO50TA8 PO; +OXYC-737 PO; +SUMA50TA15 PO
== END | disposition home or self-care (01) ==
LOC: C.LABSPEC 14:34
PROVIDERS: ATTEND Family Medicine
DX: R30.0 Dysuria (principal)

== ENCOUNTER → 2017-09-13 | Outpatient (CLI) | payer OTHER ==
[~2017-09-13] MED LIST changes: +METO50TA7 PO; -METO50TA8 PO; -OXYC-737 PO; +OXYC1TAB3 PO
== END | disposition home or self-care (01) ==
LOC: C.LABSPEC 15:47
PROVIDERS: ATTEND Family Medicine
DX: R30.0 Dysuria (principal); R31.9 Hematuria, unspecified